=== PATIENT | female | born 1995 | race Hispanic/Latino ===

== ENCOUNTER 2017-11-06 19:56 | Emergency (ER) | payer OTHER ==
[~2017-11-06 19:56] MED LIST: IRON-6 PO; PNV91TAB3 PO
[2017-11-06 20:44] LABS: BASOPHILS % (AUTO) 0.4 % (0.0-5.0); EOSINOPHILS % (AUTO) 1.3 % (0.0-8.0); HEMATOCRIT 38.1 % (36-48); LYMPHOCYTES % (AUTO) 25.6 % (21.0-51.0); MEAN CORPUSCULAR HEMOGLOBIN 30.6 pg (27.0-33.0); MEAN CORPUSCULAR HGB CONC 34.7 g/dL (32.0-36.0); MEAN CORPUSCULAR VOLUME 88.3 fL (79-99); MONOCYTES % (AUTO) 6.3 % (3.0-13.0); NEUTROPHILS % (AUTO) 66.4 % (40.0-77.0); NUCLEATED RED BLOOD CELLS 0.1 % (0.0-0.19); PLATELET COUNT (AUTO) 314 K/uL (130-400); RED BLOOD CELL COUNT(AUTO) 4.32 MIL/uL (4.00-5.50); RED CELL DISTRIBUTION WIDTH 13.2 % (11.0-15.5); WHITE BLOOD COUNT (AUTO) 15.6 K/uL (4.8-10.8)
[2017-11-06 20:56] LABS: CREATININE 0.7 mg/dL (0.5-1.5); POTASSIUM 3.5 mmol/L (3.5-5.1)
[2017-11-06 21:02] LABS: ALBUMIN 3.7 g/dL (3.5-5.0); BILIRUBIN,TOTAL 0.4 mg/dL (0.2-1.0); TOTAL PROTEIN, SERUM 8.2 g/dL (6.0-8.3)
[2017-11-06] MEDS ORDERED: CLINDAMYCIN 600 MG/D5% WATER 50 ML IV ONE (21:34)
[2017-11-06] MEDS ORDERED: ISOVUE-370 50ML VIAL IV ONE (22:17)
== END 2017-11-07 00:39 | disposition home or self-care (01) ==
LOC: EDH 19:56
DX: K12.2 Cellulitis and abscess of mouth (principal); Z88.6 Allergy status to analgesic agent; Z90.49 Acquired absence of other specified parts of digestive tract
CPT/HCPCS: 36415; 70487; 80053; 81025; 83605; 85025; 87040; 96365; 99285; J3490; Q9967

== ENCOUNTER 2019-01-31 22:07 | Observation (INO) | payer MEDICAID, OTHER ==
[~2019-01-31] VITALS: Ht 162.6 cm; Wt 93.0 kg
[2019-01-31 22:50] LABS: APPEARANCE,URINE Cloudy (CLEAR); BILIRUBIN,URINE Negative (NEGATIVE); COLOR,URINE Yellow (YELLOW); GLUCOSE, URINE (UA) Negative (NEGATIVE); KETONES,URINE Negative (NEGATIVE); LEUKOCYTE ESTERASE ,URINE Moderate (NEGATIVE); NITRATE,URINE Negative (NEGATIVE); OCCULT BLOOD,URINE Moderate (NEGATIVE); PROTEIN,URINE Negative (NEGATIVE)
[2019-01-31 22:58] LABS: AMPHET/METH SCREEN,URINE NEGATIVE (NEGATIVE); BARBITURATE SCREEN, URINE NEGATIVE (NEGATIVE); BENZODIAZEPINES SCREEN,URINE NEGATIVE (NEGATIVE); CANNABINOID SCREEN,URINE NEGATIVE (NEGATIVE); COCAINE SCREEN,URINE NEGATIVE (NEGATIVE); OPIATE SCREEN,URINE NEGATIVE (NEGATIVE); PHENCYCLIDINE SCREEN,URINE NEGATIVE (NEGATIVE)
[2019-01-31 23:05] LABS: AMORPHOUS SEDIMENT,UR Many /LPF (None Seen); BACTERIA,URINE Moderate /HPF (None Seen); SQUAMOUS EPITHELIAL CELL,UR Many /HPF (0-2)
[2019-01-31] MEDS ORDERED: ACETAMINOPHEN EXTRA STRENGTH 500 MG TABLET PO PRN (23:30)
[2019-01-31 23:57] LABS: HEMATOCRIT 34.1 % (36-48); MEAN CORPUSCULAR HEMOGLOBIN 30.3 pg (27.0-33.0); MEAN CORPUSCULAR HGB CONC 33.4 g/dL (32.0-36.0); MEAN CORPUSCULAR VOLUME 90.7 fL (79-99); PLATELET COUNT (AUTO) 255 K/uL (130-400); RED BLOOD CELL COUNT(AUTO) 3.75 MIL/uL (4.00-5.50); RED CELL DISTRIBUTION WIDTH 13.4 % (11.0-15.5); WHITE BLOOD COUNT (AUTO) 12.2 K/uL (4.8-10.8)
[2019-02-01] MEDS ORDERED: CEFAZOLIN SODIUM 1 GM VIAL IVP SCH
[2019-02-01] MEDS: LACTATED RINGERS 1000ML 1,000 ML IV SCH ×3 (00:14→09:11)
[2019-02-01 00:42] VITALS: BP 117/59
[2019-02-01] MEDS ORDERED: PREN1TAB80 PO (00:52)
[2019-02-01] MEDS ORDERED: LURA20TA PO (00:53)
[2019-02-01 01:12] VITALS: BP 113/50
[2019-02-01] MEDS ORDERED: MEPERIDINE-PF 50 MG/ML SYG ONE (02:22)
[2019-02-01] MEDS ORDERED: MEPERIDINE-PF 50 MG/ML SYG IM PRN (02:30)
[2019-02-01] MEDS ORDERED: PROMETHAZINE HCL 25 MG/ML 1ML AMPULE IM PRN (02:30)
[2019-02-01 03:23] VITALS: BP 102/52
[2019-02-01 07:40] VITALS: BP 121/63
--- NOTE | 2019-02-01 08:40 | NUR ---
UYEN RUIZ CNM ROUNDED AND REQUESTED THAT ONLY HEART TONES BE DONE AND NOT NST. ALSO ORDER GIVEN TO GIVEN A LITER OF LR AT 150CC/HR AND ONE DOSE OF ROCEPHIN 1GM AND DISCHARGE PATIENT TO HOME AFTER 3PM.
--- NOTE | 2019-02-01 09:30 | NUR ---
RADIOLOGY CT TECHNOLOGISTDUNIA IN UNIT AND IN TO VISIT WITH PATIENT FOR HISTORY OF ANXIETY. PATIENT STATES TAKES LATUDA 20MGS DAILY.
--- NOTE | 2019-02-01 09:32 | NUR ---
HX of anxiety, major depression, Schizo affect disorder Sw met with pt and Bjorn Valverde [id number]. They have a 3yro daughter and she is 27weeks with their son. Pt has mental health hx since age 13. States she was seen at [facility] for counseling services but went for a second opinion at [facility] in September 2018. There she saw Dr Andrew Yoon and was dx with Schizo affect disorder, major depression disorder and anxiety. Pt is seen every week and is on Latuda, under MD care. Pt has hx of inpt psych placement as teen, 2x at [facility] and 2x at [facility]. Pt denies any hx of ideations or suicide attempts. pt to continue weekly psych care at [facility]
[2019-02-01] MEDS: CEFTRIAXONE SODIUM 1 GM IVP SCH ×2 (09:55→09:56)
[2019-02-01 11:50] VITALS: BP 80/40
[2019-02-01 14:02] LABS: HEMATOCRIT 31.2 % (36-48); MEAN CORPUSCULAR HEMOGLOBIN 30.3 pg (27.0-33.0); MEAN CORPUSCULAR HGB CONC 33.4 g/dL (32.0-36.0); MEAN CORPUSCULAR VOLUME 90.7 fL (79-99); PLATELET COUNT (AUTO) 257 K/uL (130-400); RED BLOOD CELL COUNT(AUTO) 3.44 MIL/uL (4.00-5.50); RED CELL DISTRIBUTION WIDTH 13.2 % (11.0-15.5)
[2019-02-01 16:41] VITALS: BP 86/66
--- NOTE | 2019-02-01 16:45 | NUR ---
PATIENT WAS TAKEN VIA W/C TO FAMILY VEHICLE AND WAS DISCHARGED TO HER SIGNIFICANT OTHER AT THIS TIME. PATIENT STABLE AND DENIES ANY SYMPTOMS OF PAIN, BURNING OR ANY OTHER PROBLEMS. HAS REMAINED AFEBRILE.
== END 2019-02-01 16:45 | disposition home or self-care (01) ==
LOC: EDH 22:07 → LDH 22:08 → WSH 02-01 01:10
PROVIDERS: ADMIT Obstetrics & Gynecology; ATTEND Obstetrics & Gynecology
DX: O23.42 Unspecified infection of urinary tract in pregnancy, second trimester (principal); O26.852 Spotting complicating pregnancy, second trimester; O26.892 Other specified pregnancy related conditions, second trimester; M54.9 Dorsalgia, unspecified; R19.7 Diarrhea, unspecified; O99.342 Other mental disorders complicating pregnancy, second trimester; F32.9 Major depressive disorder, single episode, unspecified; Z3A.25 25 weeks gestation of pregnancy; Z79.899 Other long term (current) drug therapy
CPT/HCPCS: 36415 ×2; 80305; 81001; 85027 ×2; 96361; 96372; 96374; 96375; 96376; 99284; G0378 ×19; J0690; J0696; J2175; J7120 ×2; 96360; 99291

== ENCOUNTER 2019-04-23 15:18 | Inpatient (IN) | payer MEDICAID ==
[~2019-04-23] VITALS: Ht 162.6 cm; Wt 103.9 kg
[~2019-04-23 15:18] MED LIST changes: -IRON-6 PO; +LURA20TA PO; -PNV91TAB3 PO; +PREN1TAB80 PO
[2019-04-23 16:46] LABS: HEMATOCRIT 34.2 % (36-48); MEAN CORPUSCULAR HEMOGLOBIN 30.7 pg (27.0-33.0); MEAN CORPUSCULAR HGB CONC 34.2 g/dL (32.0-36.0); MEAN CORPUSCULAR VOLUME 89.8 fL (79-99); NUCLEATED RED BLOOD CELLS 0.1 % (0.0-0.19); PLATELET COUNT (AUTO) 267 K/uL (130-400); RED BLOOD CELL COUNT(AUTO) 3.81 MIL/uL (4.00-5.50); RED CELL DISTRIBUTION WIDTH 13.9 % (11.0-15.5); WHITE BLOOD COUNT (AUTO) 10.6 K/uL (4.8-10.8)
[2019-04-23] MEDS: LACTATED RINGERS 1000ML 1,000 ML IV PRN ×2 (17:52→21:17)
[2019-04-23] MEDS ORDERED: AMPICILLIN 2GM+NS 100ML 100 ML IV SCH (18:45)
[2019-04-23] MEDS: AMPICILLIN 1GM+NS 50ML 50 ML IV SCH (22:24)
[2019-04-24] MEDS: AMPICILLIN 1GM+NS 50ML 50 ML IV SCH ×3 (02:11→21:45)
[2019-04-24] MEDS ORDERED: OXYTOCIN-LR 20 UNITS/1000 ML 1,000 ML IV ONE (03:47)
[2019-04-24] MEDS ORDERED: OXYTOCIN 10 USP UNITS/ML 20 UNIT in LACTATED RINGERS 1000ML 1,000 ML IV SCH (05:00)
[2019-04-24] MEDS: MEPERIDINE-PF 50 MG/ML SYG IVP SCH (09:33)
[2019-04-24] MEDS: PROMETHAZINE HCL 25 MG/ML 1ML AMPULE IM SCH (09:33)
[2019-04-24] MEDS ORDERED: DIPH,PERTUSS(ACELL),TET VAC/PF 0.5 ML VIAL IM PRN (11:00)
[2019-04-24] MEDS ORDERED: ACETAMINOPHEN-CODEINE 300/30MG TAB PO PRN (11:00)
[2019-04-24] MEDS ORDERED: WITCH HAZEL 1 PAD TP PRN (11:00)
[2019-04-24] MEDS ORDERED: IBUPROFEN 600 MG TABLET PO PRN (11:00)
[2019-04-24] MEDS ORDERED: BENZOCAINE/LANOLIN/ALOE VERA 60 ML AEROSOL TP PRN (11:00)
[2019-04-24] MEDS ORDERED: LANOLIN 30GM OINTMENT TP PRN (11:00)
[2019-04-24] MEDS ORDERED: MEASLES/MUMPS/RUBELLA VACCINE, LIVE 0.5 ML/VIAL SQ PRN (11:00)
[2019-04-24] MEDS ORDERED: OXYTOCIN-LR 20 UNITS/1000 ML 1,000 ML IV SCH (11:00)
[2019-04-24] MEDS ORDERED: ACETAMINOPHEN 325 MG TAB PO PRN (11:00)
[2019-04-24 13:38] VITALS: BP 110/63
[2019-04-24 17:21] VITALS: BP 122/76
[2019-04-24 19:38] VITALS: BP 107/58
[2019-04-24] MEDS: DOCUSATE SODIUM 100 MG CAP PO SCH (20:11)
[2019-04-24 23:35] VITALS: BP 113/59
[2019-04-25 04:13] VITALS: BP 115/61
[2019-04-25 05:10] LABS: HEPATITIS Bs ANTIGEN SCREEN P Negative (Negative)
[2019-04-25 05:40] LABS: HEMATOCRIT 31.2 % (36-48); MEAN CORPUSCULAR HEMOGLOBIN 30.4 pg (27.0-33.0); MEAN CORPUSCULAR HGB CONC 33.8 g/dL (32.0-36.0); PLATELET COUNT (AUTO) 238 K/uL (130-400); RED BLOOD CELL COUNT(AUTO) 3.46 MIL/uL (4.00-5.50); WHITE BLOOD COUNT (AUTO) 11.7 K/uL (4.8-10.8)
[2019-04-25] MEDS: AMPICILLIN 1GM+NS 50ML 50 ML IV SCH (05:45)
[2019-04-25] MEDS: MEPERIDINE-PF 50 MG/ML SYG IVP SCH (07:14)
[2019-04-25 07:23] VITALS: BP 103/61
[2019-04-25] MEDS: PROMETHAZINE HCL 25 MG/ML 1ML AMPULE IM SCH (07:38)
[2019-04-25] MEDS: DOCUSATE SODIUM 100 MG CAP PO SCH (09:17)
--- NOTE | 2019-04-25 11:30 | NUR ---
DISCHARGE PT LEFT UNIT VIA WHEELCHAIR, WITH BABY IN ARMS, ACCOMPANIED BY SIGNIFICANT OTHER. DENIED PAIN AND HAD NO COMPLAINTS. BABY STRAPPED IN CAR SEAT. PT AND BABY TRANSPORTED BY PERSONAL VEHICLE.
== END 2019-04-25 11:30 | disposition home or self-care (01) | DRG 560 ==
LOC: LDH 15:18 → WSH 04-24 13:44
PROVIDERS: ADMIT Obstetrics & Gynecology; ATTEND Obstetrics & Gynecology
PROC: 10E0XZZ Delivery of Products of Conception, External Approach (ICD-10-PCS; principal; 2019-04-24)
PROC: 0HQ9XZZ Repair Perineum Skin, External Approach (ICD-10-PCS; 2019-04-24)
PROC: 0UQMXZZ Repair Vulva, External Approach (ICD-10-PCS; 2019-04-24)
PROC: 10907ZC Drainage of Amniotic Fluid, Therapeutic from Products of Conception, Via Natural or Artificial Opening (ICD-10-PCS; 2019-04-24)
PROC: 3E033VJ Introduction of Other Hormone into Peripheral Vein, Percutaneous Approach (ICD-10-PCS; 2019-04-24)
PROC: 3E0234Z Introduction of Serum, Toxoid and Vaccine into Muscle, Percutaneous Approach (ICD-10-PCS; 2019-04-24)
PROC: 3E0134Z Introduction of Serum, Toxoid and Vaccine into Subcutaneous Tissue, Percutaneous Approach (ICD-10-PCS; 2019-04-24)
DX: O99.824 Streptococcus B carrier state complicating childbirth (principal); O71.82 Other specified trauma to perineum and vulva; Z37.0 Single live birth; Z88.5 Allergy status to narcotic agent; O70.0 First degree perineal laceration during delivery; Z3A.37 37 weeks gestation of pregnancy; Z23 Encounter for immunization
CPT/HCPCS: 36415; 85027; 86592; 86850; 86900; 86901; 87340; 90715; A4351; A4606; G0378; J0290; J2175; J2550; J2590; J7120

== ENCOUNTER 2023-03-30 08:26 | Emergency (ER) | payer MEDICAID ==
[~2023-03-30] VITALS: Ht 167.6 cm; Wt 93.4 kg
[2023-03-30 08:51] LABS: APPEARANCE,URINE CLOUDY (CLEAR); BILIRUBIN,URINE NEGATIVE (NEGATIVE); COLOR,URINE YELLOW (YELLOW); GLUCOSE, URINE (UA) NEGATIVE (NEGATIVE); KETONES,URINE NEGATIVE (NEGATIVE); LEUKOCYTE ESTERASE ,URINE 500 Leu/uL (NEGATIVE); NITRATE,URINE NEGATIVE (NEGATIVE); OCCULT BLOOD,URINE LARGE (NEGATIVE); PROTEIN,URINE 20 mg/dL (NEGATIVE); UROBILINOGEN,URINE 0.2 mg/dL (0.2-1.0)
[2023-03-30 08:52] LABS: HCG,QUALITATIVE URINE POSITIVE (NEGATIVE)
[2023-03-30 08:53] LABS: ADD UA MICROSCOPIC YES
[2023-03-30 08:58] LABS: BASOPHILS # (AUTO) 0.03 K/uL (0.00-0.20); BASOPHILS % (AUTO) 0.3 % (0.0-5.0); EOSINOPHILS # (AUTO) 0.16 K/uL (0.00-0.70); EOSINOPHILS % (AUTO) 1.6 % (0.0-8.0); HEMATOCRIT 38.1 % (36-48); IMMATURE GRANULOCYTE ABSOLUTE 0.03 K/uL (0-1); LYMPHOCYTES # (AUTO) 3.2 K/uL (1.0-4.8); LYMPHOCYTES % (AUTO) 33.1 % (21.0-51.0); MEAN CORPUSCULAR HEMOGLOBIN 29.2 pg (27.0-33.0); MEAN CORPUSCULAR HGB CONC 32.8 g/dL (32.0-36.0); MONOCYTES # (AUTO) 0.6 K/uL (0.1-1.0); MONOCYTES % (AUTO) 5.9 % (3.0-13.0); NEUTROPHILS # (AUTO) 5.7 K/uL (1.8-7.7); NEUTROPHILS % (AUTO) 58.8 % (40.0-77.0); PLATELET COUNT (AUTO) 278 K/uL (130-400); RED BLOOD CELL COUNT(AUTO) 4.28 MIL/uL (4.00-5.50); RED CELL DISTRIBUTION WIDTH 12.7 % (11.0-15.5); WHITE BLOOD COUNT (AUTO) 9.7 K/uL (4.8-10.8)
[2023-03-30 09:02] LABS: BACTERIA,URINE MOD /HPF (None Seen); MUCUS,URINE RARE LPF (None Seen); SQUAMOUS EPITHELIAL CELL,UR MANY /HPF (0-2); WBC,URINE 51-100 /HPF (0-1)
[2023-03-30 09:33] LABS: ALBUMIN 3.3 g/dL (3.5-5.0); BILIRUBIN,TOTAL 0.3 mg/dL (0.2-1.0); CREATININE 0.6 mg/dL (0.5-1.5); POTASSIUM 4.1 mmol/L (3.5-5.1); TOTAL PROTEIN, SERUM 7.7 g/dL (6.0-8.3)
[2023-03-30] MEDS ORDERED: CEPH500B PO (10:49)
[2023-03-30 10:55] VITALS: BP 112/70; PULSE 66; RESP 14; O2SAT 100
== END 2023-03-30 10:55 | disposition home or self-care (01) ==
LOC: EDH 08:26
DX: O23.41 Unspecified infection of urinary tract in pregnancy, first trimester (principal); N39.0 Urinary tract infection, site not specified; Z3A.01 Less than 8 weeks gestation of pregnancy; Z90.49 Acquired absence of other specified parts of digestive tract; Z88.5 Allergy status to narcotic agent
CPT/HCPCS: 36415; 76801; 80053; 81001; 81025; 84702; 85025; 87088